=== PATIENT | female | born 1955 | race Caucasian/White ===

== ENCOUNTER → 2016-08-11 | Outpatient (CLI) | payer BC ==
[~2016-08-11] MED LIST: CHOL2000 PO; HYDR-5688 PO; HYDUNK; MULT-506 PO; SULF800T23 PO
--- NOTE | 2016-08-12 08:02 | MAMMOGRAPHY REPORT ---
BILATERAL DIGITAL SCREENING MAMMOGRAM TOMOSYNTHESIS WITH CAD: 08/11/2016 CLINICAL HISTORY: Routine screening. Patient has no complaints. TECHNIQUE: Breast tomosynthesis in addition to standard 2D mammography was performed. Current study was also evaluated with a Computer Aided Detection (CAD) system. COMPARISON: Comparison is made to exams dated: 08/07/2015 mammogram, 08/02/2014 mammogram, 06/22/2013 annette mogram, 06/17/2012 mammogram, 06/17/2011 mammogram, and 02/11/2010 mammogram - [facility]ter. BREAST COMPOSITION: There are scattered areas of fibroglandular density in both breasts. FINDINGS: There is possible architectural distortion in the upper outer middle one third of the righ t breast, for which additional spot compression tomosynthesis views and possibly ultrasound are recom mended. No other suspicious mass, architectural distortion or cluster of microcalcifications is seen bilatera lly. IMPRESSION: ACR BI-RADS CATEGORY 0: INCOMPLETE EVALUATION: NEED ADDITIONAL IMAGING EVALUATION The possible architectural distortion in the upper outer right breast needs additional evaluation. The patient will be called to schedule an appointment. Approximately 10% of breast cancers are not detected with mammography. A negative mammographic report should not delay biopsy if a clinically suggestive mass is present. Siomara Webster M.D. ay/:08/11/2016 17:06:04 Candy Catcher: Odilia ELISE(R)(M), [facility] letter sent: Addl Imaging 0 BI-RADS Code: ACR BI-RADS Category 0: Incomplete Evaluation: Need Additional Imaging Evaluation
== END | disposition home or self-care (01) ==
LOC: C.MAMM 07:17
PROVIDERS: ATTEND Internal Medicine
DX: Z12.31 Encounter for screening mammogram for malignant neoplasm of breast (principal)

== ENCOUNTER → 2016-08-19 | Outpatient (CLI) | payer BC ==
--- NOTE | 2016-08-19 14:14 | MAMMOGRAPHY REPORT ---
UNILATERAL RIGHT DIGITAL DIAGNOSTIC MAMMOGRAM TOMOSYNTHESIS AND TARGETED RIGHT ULTRASOUND: 08/19/2016 CLINICAL HISTORY: 61-year-old woman called back from screening mammography for possible architectural distortion in the upper outer quadrant of the right breast. TECHNIQUE: Spot compression right CC and MLO tomosynthesis images were obtained. Right CC and MLO fu ll field tomosynthesis images were also obtained after placement of skin BB markers. COMPARISON: Comparison is made to exams dated: 08/11/2016 mammogram, 08/07/2015 mammogram, 08/02/2014 annette mogram, 06/22/2013 mammogram, 06/17/2012 mammogram, and 06/17/2011 mammogram - [facility]. BREAST COMPOSITION: The tissue of the right breast is heterogeneously dense, which may obscure small masses. FINDINGS: The additional spot compression views of the right breast demonstrate probable persistent a rchitectural distortion in the lateral middle one third of the breast on the CC view (CC slice 37), t hought to correspond on MLO slice 17. There are 2 other questionable areas of distortion in the late ral right breast seen on CC slice 21 and CC slice 25. A single microcalcification is seen near one a wu of distortion but no suspicious grouping or cluster of calcifications are identified. Further ev aluation with ultrasound was performed. Targeted ultrasound was performed throughout the upper outer quadrant of the right breast. There is a subtle hypoechoic shadowing lesion in the 11:00 right breast, 4 cm from the nipple, with suggested architectural distortion. This measures approximately 6.1 x 10.1 x 5.8 mm. Another subtle hypoechoi c shadowing lesion with possible architectural distortion is seen in the 10:00 right breast, 5 cm fro m the nipple, measuring 7.2 x 10.9 x 10.3 mm. This area of possible distortion is seen adjacent to a superficial oval circumscribed hypoechoic solid-appearing mass measuring 4.1 x 2.6 x 3.3 mm, which i s thought to represent an intramammary lymph node. Skin BBs were placed overlying the hypoechoic shadowing sonographic lesions and repeat full field rig ht CC and MLO tomosynthesis images were obtained. The lesion in the 10:00 axis is thought to correla te with the most definitive area of mammographic distortion and therefore tissue sampling is recommen ded. The second BB marker aligns with a another questionable area of architectural distortion more m edially in the right breast and ultrasound-guided core biopsy is also recommended in the 11:00 axis. IMPRESSION: ACR BI-RADS CATEGORY 4B: INTERMEDIATE SUSPICION FOR MALIGNANCY, TARGETED ULTRASOUND ACR BI-RADS CATEGORY 4B: INTERMEDIATE SUSPICION FOR MALIGNANCY 1. Ultrasound guided core needle biopsy 2 is recommended for subtle hypoechoic shadowing lesions in the 10:00 and 11:00 right breast, thought to correlate with subtle areas of architectural distortion seen mammographically. Correlation with post-procedure tomosynthesis images is recommended. These results and recommendations were discussed with the patient at the time of the exam. She tenta tively scheduled the ultrasound guided core biopsy is prior to leaving our department. A possible th ird area of mammographic distortion is not definitively seen on ultrasound. Further recommendations will be made regarding this lesion, once pathology results are available. Approximately 10% of breast cancers are not detected with mammography. A negative mammographic report should not delay biopsy if a clinically suggestive mass is present. Siomara Webster M.D. ay/:08/19/2016 10:12:56 Client Server Programmer: Odilia ELISE(Anne)(Tom), [facility] letter sent: Abnormal 4/5 BI-RADS Code: ACR BI-RADS Category 4B: Intermediate Suspicion For Malignancy Ultrasound BI-RADS: ACR BI-RADS Category 4B: Intermediate Suspicion For Malignancy
== END | disposition home or self-care (01) ==
LOC: C.MAMM 07:46
PROVIDERS: ATTEND Internal Medicine
DX: N64.9 Disorder of breast, unspecified (principal)

== ENCOUNTER → 2016-09-01 | Outpatient (CLI) | payer BC ==
--- NOTE | 2016-09-01 10:08 | Discharge Instructions ---
Discharge Instructions Procedure Procedure Date: Sep 01, 2016. Reason for visit: Right Masses. Discharge Discharge Date: Sep 01, 2016. Discharge Diagnosis: post right breast ultrasound guided core biopsy x 2 Instructions Activity Recommendations: Additional Limitations (see below) Return to School/Work: no limitations Recommended Home Diet: No Limitations Provider Instructions: ACTIVITY RECOMMENDATIONS: * No lifting, pushing, pulling or exercising the affected side for three days. RETURN TO SCHOOL/WORK: * You may return to work/school after the procedure, but do not perform any strenuous activities for 24 to 48 hours. MEDICATIONS: * Tylenol (two 325 mg) every four to six hours if needed for mild pain (if not allergic to Tylenol). DIET: * Resume previous diet. SPECIAL CARE INSTRUCTIONS: * Keep biopsy site dry for 24 hours. May shower after 24 hours, but do not soak (bathe) incision. * May remove Tegaderm (plastic patch) tomorrow AFTER showering. * Leave the steri-strips on for one week. Allow the steri-strips to fall off by themselves. If not off after one week, you may remove them. You may place a Bandaid crosswise over the strips, if desired. * Apply ice 10 minutes on and 10 minutes off as needed. * Wear a bra at bedtime to sleep more comfortably for 2-3 days. * Your referring physician should have the results after approximately 5 to 7 business days. * Call for unusual bleeding, fever, drainage, etc or if you have any questions call [phone] during normal business hours or after hours call Dr Webster, . FOLLOW UP VISIT: Follow-up with Referring Physician as scheduled. Allergies Coded Allergies: Codeine (Unverified Allergy, Unknown, rash, 11/13/15) Prochlorperazine (Unverified Allergy, Unknown, rash, 11/13/15) Uncoded Allergies: PCN, COMPAZINE CODEIN (Allergy, Intermediate, RASH, 03/02/10) PENICILLIN (Allergy, Unknown, rash, 11/13/15) Debo Schwab Recommendations: Call your doctor if: * Temperature above 101 degrees * Pain not relieved by pain medicine ordered * There is increased drainage or redness from any incision * You have any unanswered questions or concerns. Your Doctors Instructions noted above were prepared by provider Siomara Webster. Patient Signature Section: Patient Instructions Signature Page Jeimy Velasquez Patient (or Guardian) Signature/Date: I have read and understand the instructions given to me by my caregivers. Caregiver/RN/Doctor Signature/Date: The above-named patient and/or guardian has received patient instructions on this date. + Original Patient Signature Page (only) stays with chart. Please make copy for patient.
--- NOTE | 2016-09-01 12:36 | MAMMOGRAPHY REPORT ---
ULTRASOUND GUIDED BIOPSY: 09/01/2016 CLINICAL HISTORY: Status post ultrasound-guided core biopsy of hypoechoic shadowing masses in the 10: 00 and 11:00 axes of the right breast. Please refer to the report from right breast ultrasound guided core biopsy performed at the same time for full detail. IMPRESSION: ULTRASOUND GUIDED BIOPSY Please refer to the report from right breast ultrasound guided core biopsy performed at the same time for full detail. Siomara Webster M.D. ay/:09/01/2016 10:09:32 Attending Technologist: Dr. Siomara Webster, [facility] Cutter Helper: Eh Crandall RT(R)(M), [facility]
--- NOTE | 2016-09-01 12:36 | MAMMOGRAPHY REPORT ---
THIS REPORT HAS BEEN AMENDED. MULTIPLE ULTRASOUND GUIDED BIOPSIES RIGHT BREAST: 09/01/2016 CLINICAL HISTORY: Ill-defined hypoechoic shadowing mass is identified in the 10:00 and 11:00 right br east. These are thought to correlate with possible areas of architectural distortion seen mammograph ically. Patient presents for ultrasound guided core biopsy 2. COMPARISON: Comparison is made to exams dated: 08/19/2016 mammogram, 08/19/2016 ultrasound, 08/11/2016 mammogram, 08/07/2015 mammogram, 08/02/2014 mammogram, and 06/22/2013 mammogram - [facility]ter. PATIENT CONSENT: The procedure, risks and benefits were discussed with the patient and informed writt en consent was obtained. Specific risks to this procedure include: bleeding, infection, puncture of a djacent structure, nontargeted biopsy, sampling error, metal allergy and medication reaction. PROCEDURE DESCRIPTION: A time out was performed and the right breast was agreed as the site of biopsy . The skin was prepped and draped in the usual sterile fashion. First the ill-defined hypoechoic sha dowing mass in the 11:00 right breast was identified and targeted for biopsy. Subcutaneous and intrap arenchymal 1% buffered lidocaine, with and without epinephrine, was administered as local anesthesia. A skin incision was made. Through the incision, 4 samples were taken with a 12 gauge Celero biopsy device. A ribbon shaped metallic marker was placed at the biopsy site. Hemostasis was achieved after manual compression. The patient tolerated the procedure well and there was no immediate complication. Then the ill-defined hypoechoic shadowing mass in the 10:00 right breast was identified and targeted for biopsy. Additional subcutaneous and intraparenchymal 1% buffered lidocaine, with and without epi nephrine, was administered as local anesthesia. A skin incision was made. Through the incision, 6 s amples were obtained with a 14-gauge achieve biopsy device. A wing shaped metallic marker was placed at this biopsy site. Hemostasis was achieved after manual compression. The patient tolerated the p rocedure well and there was no immediate consultation. All of the samples were sent to the pathology department in appropriately labeled containers. Postprocedure right CC and ML 2-D digital and tomosynthesis images were obtained. There are new ribb on-shaped and wing shaped metallic biopsy markers in the upper outer quadrant of the right breast. T he wing shaped metallic biopsy marker correlates well with the more lateral area of architectural dis tortion and a ribbon-shaped marker is thought to correlate with the more medial distortion, although the distortion is not well appreciated on the post procedure images. No significant postbiopsy hemat dara is seen. IMPRESSION: ULTRASOUND GUIDED BIOPSY Status post ultrasound-guided core biopsy of 2 ill-defined hypoechoic shadowing masses in the 10:00 a nd 11:00 axes of the right breast, with biopsy markers placed at each site. The patient will receive notification of the biopsy results from her referring physician. Siomara Webster M.D. ay/:09/01/2016 12:17:23 Attending Technologist: Dr. Siomara Webster, [facility] Terrestrial Ecologist: Eh ELISE(R)(M), [facility] AMENDMENT: 09/04/2016 Siomara Webster M.D. Pathology results from the ultrasound-guided core biopsy of an ill-defined hypoechoic shadowing mass in the 10:00 right breast yielded infiltrating lobular carcinoma. Grade 1/3. ER positive, OR negati ve, HER-2/katie negative. Pathology from the ultrasound-guided core biopsy of an ill-defined hypoechoi c shadowing mass in the 11:00 right breast yielded infiltrating lobular carcinoma. Grade 1/3. ER po sitive, OR positive, HER-2/katie negative. The pathology results are concordant with the imaging appea fernandez. However, given the infiltrative and subtle nature of these masses both mammographically and s onographically, for extensive disease may be underestimated based on mammogram and ultrasound size me asurements. Therefore, recommend bilateral breast MRI to better assess extent of disease, assess the contralateral left breast and for additional information prior to definitive treatment.
--- NOTE | 2016-09-01 12:37 | MAMMOGRAPHY REPORT ---
UNILATERAL RIGHT DIGITAL DIAGNOSTIC MAMMOGRAM TOMOSYNTHESIS: 09/01/2016 CLINICAL HISTORY: Status post ultrasound guided core biopsy 2 in the right breast. Please refer to the report from right breast ultrasound guided core biopsy performed at the same time for full detail. IMPRESSION: POST PROCEDURE IMAGING FOR MARKER PLACEMENT Please refer to the report from right breast ultrasound guided core biopsy performed at the same time for full detail. Approximately 10% of breast cancers are not detected with mammography. A negative mammographic report should not delay biopsy if a clinically suggestive mass is present. Siomara Webster M.D. ay/:09/01/2016 10:10:18 Cryptographic Clerk: Eh ELISE(R)(M), [facility] BI-RADS Code: Post Procedure Imaging For Marker Placement
== END | disposition home or self-care (01) ==
LOC: C.MAMM 08:40
PROVIDERS: ATTEND Internal Medicine
DX: D05.01 Lobular carcinoma in situ of right breast (principal)

== ENCOUNTER → 2016-09-16 | Outpatient (CLI) | payer BC ==
[2016-09-16 12:26] LABS: BASO % 0.8 %; BASO ABS # 0.06 K/uL (0-0.2); COMPLETE YES; EOS % 2.3 %; HEMATOCRIT 44.5 % (37-47); IG% 0.3 %; LYMPH % 37.7 %; LYMPH ABS # 2.76 K/uL (1.2-3.4); MEAN CELL VOLUME 83.3 fL (80-100); MEAN CORPUSCULAR HEMOGLOBIN 28.3 pg (25-34); MEAN CORPUSCULAR HGB CONC 33.9 g/dl (32-36); MEAN PLATELET VOLUME 10.4 fL (7.4-10.4); MONO % 6.8 %; NEUT % 52.1 %; PLATELET COUNT 309 K/uL (130-400); RED BLOOD COUNT 5.34 M/uL (4.2-5.4); WHITE BLOOD COUNT 7.32 K/uL (4.8-10.8)
[2016-09-16 13:00] LABS: URINE APPEARANCE CLEAR (CLEAR); URINE COLOR YELLOW; URINE SPECIFIC GRAVITY 1.016 (1.000-1.030); ZZUR CULT IF INDIC CLEAN CATCH NO
[2016-09-16 13:01] LABS: URINE BILIRUBIN NEG (NEG); URINE NITRITE NEG (NEG); UROBILINOGEN NEG (NEG)
[2016-09-16 13:08] LABS: ALT/SGPT 36 U/L (12-78); BLOOD UREA NITROGEN 13 mg/dl (7-18); BUN/CREATININE RATIO 16.8 (10-20); CARBON DIOXIDE 27 mmol/L (21-32); CHLORIDE 109 mmol/L (98-107); CHOLESTEROL 180 mg/dl (0-200); CREATININE 0.79 mg/dl (0.60-1.20); GLUCOSE 95 mg/dl (70-99); POTASSIUM 4.1 mmol/L (3.5-5.1); SODIUM 141 mmol/L (136-145); TRIGLYCERIDES 115 mg/dl (0-150); VERY LOW DENSITY LIPOPROT CALC 23 mg/dl
[2016-09-16 13:08] LABS: MANUAL MICROSCOPIC REQUIRED? NO; REVIEW REQ? NO
[2016-09-16 13:18] LABS: ALB/GLOB RATIO 1.2 (0.9-2); ALKALINE PHOSPHATASE 110 U/L (45-117); AST/SGOT 23 U/L (15-37); CHOLESTEROL/HDL RATIO 3.5; HDL CHOLESTEROL 52 mg/dl; LDL CHOLESTEROL CALCULATED 105 mg/dl
== END | disposition home or self-care (01) ==
LOC: C.LABBFT 07:40
PROVIDERS: ATTEND Internal Medicine
DX: C50.911 Malignant neoplasm of unspecified site of right female breast (principal); E78.5 Hyperlipidemia, unspecified; E03.9 Hypothyroidism, unspecified; E55.9 Vitamin D deficiency, unspecified

== ENCOUNTER → 2016-09-18 | Outpatient (CLI) | payer BC ==
--- NOTE | 2016-09-19 12:18 | MAMMOGRAPHY REPORT ---
BREAST MRI OF BOTH BREASTS : 09/18/2016 CLINICAL HISTORY: 61-year-old woman with recently diagnosed infiltrating lobular carcinoma in the rig ht breast 10:00 and 11:00 axes. She presents for MRI to assess extent of disease, given the subtle n ature of the masses on mammogram and ultrasound. COMPARISON: Comparison is made to exams dated: 09/01/2016 mammogram, 09/01/2016 ultrasound biopsy, 017 ultrasound biopsy, 08/19/2016 mammogram, 08/19/2016 ultrasound, and 08/11/2016 mammogram - [facility]. TECHNIQUE: Using a 1.5 Anneliese magnet and dedicated breast coil, multisequence axial images were obtain ed through the breasts. After uneventful IV administration of 6.5 mL of Gadavist, dynamic multiphase contrast-enhanced axial images, and sagittal postcontrast were obtained. Temporal subtraction axial images and 3-D MIP images are provided. Everything was then reviewed on a 3-D workstation, [employer]. FINDINGS: Right breast: There is mild background parenchymal enhancement of the right breast. There is subtle focal architectural distortion in the 11:00 to 11:30 middle one third of the right breast, with minim al associated enhancement, and internal biopsy marker. This subtle non-mass enhancement and architec tural distortion measures approximately 9 x 14 x 9 mm (axial page 48/116, sagittal page 29/128). A s econd subtle area of architectural distortion and minimal associated enhancement is identified in the 10:00 middle one third of the right breast measuring approximately 11 x 9 x 12 mm (axial page 54/116 , sagittal page 17/128). There is a third 4 mm focus of enhancement in the 9:00 middle one third of the right breast, approximately 18 mm inferior to the biopsy marker clip in the 10:00 axis. This has associated persistent and plateau kinetics and architectural distortion is best appreciated surround ing this focus on sagittal page 20. This is suspicious for a third malignant lesion in the right upp er outer quadrant. A very subtle and more linear fourth focus of enhancement measuring 4 x 5 mm is s een in the 10:00 posterior right breast, approximately 4 cm posterior to the biopsy proven carcinoma in the 10:00 breast. (This is best seen on axial page 53/116 and sagittal page 22/128). These findi ngs are concerning for multifocal disease within the upper outer quadrant. No other definite enhancing mass, non-mass enhancement, focal area of architectural distortion or kristi picious kinetics are identified in the right breast. There is no focal skin thickening or nipple ret raction. No suspicious right axillary, subpectoral or internal mammary lymphadenopathy. Left breast: There is mild background parenchymal enhancement. There is a benign intramammary lymph node in the upper outer middle one third of the left breast. No suspicious enhancing mass, non-mass enhancement, focal architectural distortion or suspicious kinetics are seen in the left breast. No s uspicious left axillary, subpectoral or intramammary lymphadenopathy. IMPRESSION: ACR BI-RADS CATEGORY 4B: INTERMEDIATE SUSPICION FOR MALIGNANCY 1. Subtle, minimally enhancing areas of architectural distortion in the 10:00 and 11:0011:30 right breast with associated biopsy marker clips, denoting the patient's recent biopsy-proven carcinoma. 2. 2 additional suspicious enhancing foci identified in the right 9:00 middle one third and 10:00 po sterior breast. Overall, the findings are suspicious for multifocal disease, and if breast conservat ion therapy is desired, would recommend second look ultrasound to assess for the additional lesions a nd possible ultrasound-guided core biopsy if either or both are identified (45 minutes). 3. No suspicious axillary, internal mammary or subpectoral lymphadenopathy. 4. No MRI evidence of malignancy in the left breast. The patient will be called to schedule an appointment. Siomara Webster M.D. ay/:09/18/2016 22:07:27 Mid Level Practitioner: endless steamer tender, [facility] letter sent: Abnormal 4/5 BI-RADS Code: ACR BI-RADS Category 4B: Intermediate Suspicion For Malignancy
== END | disposition home or self-care (01) ==
LOC: C.MRI 12:14
PROVIDERS: ATTEND Internal Medicine
DX: C50.911 Malignant neoplasm of unspecified site of right female breast (principal)

== ENCOUNTER → 2016-10-06 | Outpatient (CLI) | payer BC | END | disposition home or self-care (01) | LOC: C.CPL 16:28 | PROVIDERS: ATTEND Surgery | DX: Z01.818 Encounter for other preprocedural examination (principal); C50.911 Malignant neoplasm of unspecified site of right female breast ==

== ENCOUNTER 2016-10-16 07:18 | Day surgery (SDC) | payer BC ==
[2016-10-13 12:04] VITALS: BMI 27.0
[~2016-10-16] VITALS: Ht 167.6 cm; Wt 76.4 kg
[~2016-10-16 07:18] MED LIST changes: +CLINDAMYCIN IV 900 MG in DEXTROSE 5% 100ML 100 ML IV SCH; +FENTANYL CITRATE INJ 50 MCG/1 ML 2 ML VIAL ONE; -HYDR-5688 PO; -HYDUNK; +LACTATED RINGER'S 1000ML 1,000 ML IV SCH; +MIDAZOLAM HCL 1 MG/ML 2ML VIAL ONE; -SULF800T23 PO
[2016-10-16 07:45] VITALS: BP 137/94; PULSE 69; TEMP 37; O2SAT 98; Ht 167.6 cm; Wt 76.4 kg
[2016-10-16] MEDS ORDERED: EpHEDrine SULFATE INJ 50 MG/ML AMP IV PRN (08:15)
[2016-10-16] MEDS ORDERED: ATROPINE SULFATE 0.1 MG/ML 5ML SYR IV PRN (08:15)
[2016-10-16] MEDS ORDERED: ONDANSETRON INJ 2 MG/ML 2 ML VIAL IV PRN ×2 (08:15→11:45)
[2016-10-16] MEDS ORDERED: FENTANYL CITRATE INJ 50 MCG/1 ML 2 ML VIAL IV PRN (08:15)
--- NOTE | 2016-10-16 08:24 | History & Physical Bridge Note ---
H&P Re-Evaluation Bridge Note: I have examined the patient, reviewed the History & Physical and in the interval since the performance of the History & Physical I have noted the following changes of clinical significance: No changes noted
--- NOTE | 2016-10-16 09:16 | DIAGNOSTIC IMAGING REPORT ---
LYMPHOSCINTIGRAPHY CLINICAL HISTORY: Right breast cancer. PROCEDURE: Using standard sterile technique, 4 intradermal and one deep injection of 0.56 mCi of Lymphoseek was placed in the right periareolar breast. The patient tolerated the procedure well. There were no immediate complications. The patient was subsequently transported to the surgical suite. No imaging was obtained at the referring physician's request. IMPRESSION: Injection of 0.56 mCi of Lymphoseek in the right breast. Electronically signed by: Ronald Galeano M.D. 10/16/2016 9:15 AM Dictated Date/Time: 10/16/2016 9:14 AM
[2016-10-16] MEDS ORDERED: BUPIVACAINE/EPINEPHRINE 0.5% MPF 1:200,000 10 ML VIAL ONE (09:22)
[2016-10-16] MEDS ORDERED: FENTANYL CITRATE INJ 50 MCG/1 ML 2 ML VIAL ONE ×2 (09:48→10:04)
[2016-10-16] MEDS ORDERED: ONDANSETRON INJ 2 MG/ML 2 ML VIAL ONE (09:58)
[2016-10-16] MEDS ORDERED: DEXAMETHASONE SOD INJ 4 MG/ML VIAL ONE (09:58)
[2016-10-16] MEDS ORDERED: PROPOFOL IV EMULSION 10 MG/ML 20 ML VIAL IV ONE (09:58)
[2016-10-16] MEDS ORDERED: LIDOCAINE HCL 2% 2 ML VIAL (20MG/ML) ONE (09:58)
[2016-10-16] MEDS ORDERED: EpHEDrine SULFATE INJ 50 MG/ML AMP ONE (10:06)
[2016-10-16] MEDS ORDERED: ARISTA ABSORBABLE HEMOSTAT 3GM TOP ONE (10:59)
[2016-10-16] MEDS ORDERED: TISSEEL FIBRIN SEALANT 4ML TOP ONE (11:00)
[2016-10-16] MEDS ORDERED: SULF800T23 PO (11:36)
[2016-10-16] MEDS ORDERED: SODIUM CHLORIDE 0.9% 1000ML 1,000 ML IV SCH (11:39)
--- NOTE | 2016-10-16 11:39 | Discharge Instructions ---
Discharge Instructions Date of Service Oct 16, 2016. Admission Reason for Admission: Right Breast Cancer Discharge Discharge Diagnosis / Problem: Right Breast Cancer Discharge Goals Goal(s): Learn about illness Activity Recommendations Activity Limitations: as noted below Lifting Limitations: no more than 10 pounds Exercise/Sports Limitations: until after follow-up appointment May Resume Sexual Activity: after follow-up appointment Shower/Bathe: tomorrow . Instructions / Follow-Up Instructions / Follow-Up You may shower tomorrow. You have steri-strips on your incision. They will usually stay on the skin for 5-7 days. Please leave them on until they fall off. You may keep a gauze dressing overtop the steri-strips if you prefer. Please follow-up with Dr. Ferrera in the office in 1-2 weeks. Please call the office at [phone] to make an appointment if you do not have one already. Please call the office at [phone] with any questions or concerns. Current Hospital Diet Patient's current hospital diet: Discharge Diet Recommended Diet: Regular Diet Procedures Procedures Performed: Right Breast Mastectomy with Right [place] Lymph Node Biopsy Pending Studies Studies pending at discharge: yes List of pending studies: Pathology report. Laboratory Results Lipid Panel Test 09/16/16 07:49 Range/Units Triglycerides Level 115 0-150 mg/dl Cholesterol Level 180 0-200 mg/dl HDL Cholesterol 52 mg/dl Cholesterol/HDL Ratio 3.5 LDL Cholesterol, Calculated 105 mg/dl Medical Emergencies . Who to Call and When: Medical Emergencies: If at any time you feel your situation is an emergency, please call 911 immediately. . Non-Emergent Contact Non-Emergency issues call your: Primary Care Provider, Surgeon Call Non-Emergent contact if: temperature is above 101.5, your pain is not controlled, wound has increased drainage, wound has increased redness . "Provider Documentation" section prepared by Shannon Santizo. . VTE Core Measure Inpt VTE Proph given/why not?: SCD's [place] Drug Monitoring Program Search Results: patient reviewed within database, no issues identified
--- NOTE | 2016-10-16 11:56 | [facility] Operative Report ---
Operative Report Operative Date Oct 16, 2016. Pre-Operative Diagnosis Right Breast Cancer Post-Operative Diagnosis Same as preoperative; negative sentinel lymph nodes times 3 Procedure(s) Performed Right Breast Mastectomy with Right Purd[place] Lymph Node Biopsy Surgeon Dr. Denis Ferrera Turkish Line Attendant Surgeon(s) Shannon Santizo PA-C Estimated Blood Loss 20mL Findings normal appearing anatomy; 3 negative sentinel lymph nodes Specimens Frozen Specimens: 1) [place] Lymph Node #1, left OR6 @ 1022 2) [place] Lymph Node #2, left OR6 @ 1030 3) [place] Lymph Node #2, left OR6 @ 1030 Fresh Specimens: A.) Right Breast, 1 Long Lateral; 2 Short Superior, left OR6 @ 1022 Anesthesia general LMA Complication(s) None Disposition Recovery Room / PACU Description of Procedure Prior to coming to the operating suite the patient has been taken to radiology and injected with technetium. After that she was brought to the operating room placed in supine position. The right arm was extended and the upper chest wall breast and entire axilla was sterilely prepped and draped in usual fashion. We did use the neoprobe to ensure there was adequate injection at the periareolar sites. We also did find several areas of activity in the right axilla. Because we are doing a total mastectomy with began by performing the mastectomy and then would remove the lymph nodes through the same incision. I made a wide elliptical incision with a 15 blade scalpel. We used electrocautery make skin flaps we carried this incision the whole way down to the fascia of the pectoralis muscle. Using traction /countertraction and electrocautery we removed the entire right breast creating superior and inferior skin flaps while doing so. We controlled any bleeding points using primarily electrocautery. Once we had the entire breast removed we did ivanna it such that one long stitch marked lateral side and 2 short stitches marked the superior side and of course the skin and nipple marking the anterior portion. After we had the breast removed we used the neoprobe. We were able to identify 3 "hot" lymph nodes. After removing them all of the background neoprobe activity was gone. We used traction countertraction electrocautery to simply remove them each individually and send them for frozen section. The pathologist would call back into the room indicating that all 3 sentinel lymph nodes were negative. At this point we thoroughly irrigated all the raw surfaces. There was adequate hemostasis at the end of the procedure. I used tisseal sealant over all the raw surfaces as well as Yisel powder. I placed a 10 flat Juan-Guzman drain and brought through a separate stab incision. We then closed large defect in multiple layers using 0 Vicryl for the deeper layers 2-0 Vicryl for the middle layers and 3-0 Monocryl in running fashion for the skin. Benzoin Steri-Strips gauze and a Surgi-Bra were used for dressing. Patient was awakened extubated and transferred recovery in stable condition I attest to the content of the Intraoperative Record and any orders documented therein. Any exceptions are noted below.
[2016-10-16] MEDS ORDERED: HYDR-5688 PO (12:00)
[2016-10-16 12:30] VITALS: BP 158/77; PULSE 92; TEMP 36.5; O2SAT 92
--- NOTE | 2016-10-16 12:40 | Anesthesiology Progress Note ---
Anesthesia Post Op Note Date & Time Oct 16, 2016 at 12:40 Vital Signs Pain Intensity: 1 Vital Signs Past 12 Hours Date Time Temp Pulse Resp B/P (MAP) Pulse Ox O2 Delivery O2 Flow Rate FiO2 10/16/16 12:10 36.4 14 159/80 92 Room Air 10/16/16 11:32 36.4 94 14 158/79 95 Mask 10 10/16/16 07:45 37.0 69 16 137/94 (108) 98 Room Air Notes Mental Status: alert / awake / arousable, participated in evaluation Pt Amnestic to Procedure: Yes Nausea / Vomiting: adequately controlled Pain: adequately controlled Airway Patency, RR, SpO2: stable & adequate BP & HR: stable & adequate Hydration State: stable & adequate Anesthetic Complications: no major complications apparent
[2016-10-16 13:00] VITALS: BP 154/88; PULSE 76; O2SAT 99
[2016-10-16 13:11] VITALS: BP 167/78; PULSE 80; O2SAT 99
[2016-10-16 13:45] VITALS: BP 160/70; PULSE 84; TEMP 36.5; O2SAT 99
--- NOTE | 2016-10-16 14:27 | Anesthesiology Progress Note ---
Anesthesia Post Op Note Date & Time Oct 16, 2016 at 14:26 Vital Signs Pain Intensity: 0 Vital Signs Past 12 Hours Date Time Temp Pulse Resp B/P (MAP) Pulse Ox O2 Delivery O2 Flow Rate FiO2 10/16/16 13:11 80 16 167/78 99 Nasal Cannula 2 10/16/16 13:00 76 18 154/88 99 Nasal Cannula 4 10/16/16 12:30 36.5 92 14 158/77 92 Room Air 0 10/16/16 12:10 36.4 14 159/80 92 Room Air 10/16/16 11:32 36.4 94 14 158/79 95 Mask 10 10/16/16 07:45 37.0 69 16 137/94 (108) 98 Room Air Notes Mental Status: alert / awake / arousable, participated in evaluation Pt Amnestic to Procedure: Yes Nausea / Vomiting: adequately controlled Pain: adequately controlled Airway Patency, RR, SpO2: stable & adequate BP & HR: stable & adequate Hydration State: stable & adequate Anesthetic Complications: no major complications apparent
[2016-10-16 14:30] VITALS: BP 154/80; PULSE 81; TEMP 36.4; O2SAT 99
== END 2016-10-16 15:25 | disposition home or self-care (01) ==
LOC: C.ACU 07:18
PROVIDERS: ATTEND Surgery
DX: C50.911 Malignant neoplasm of unspecified site of right female breast (principal); N81.11 Cystocele, midline; E78.5 Hyperlipidemia, unspecified; I10 Essential (primary) hypertension; E03.9 Hypothyroidism, unspecified; Z80.3 Family history of malignant neoplasm of breast; Z80.49 Family history of malignant neoplasm of other genital organs

== ENCOUNTER → 2017-02-26 | Outpatient (CLI) | payer BC ==
[~2017-02-26] MED LIST changes: -CLINDAMYCIN IV 900 MG in DEXTROSE 5% 100ML 100 ML IV SCH; -FENTANYL CITRATE INJ 50 MCG/1 ML 2 ML VIAL ONE; -LACTATED RINGER'S 1000ML 1,000 ML IV SCH; -MIDAZOLAM HCL 1 MG/ML 2ML VIAL ONE
[2017-02-26 12:17] LABS: BASO % 0.4 %; BASO ABS # 0.05 K/uL (0-0.2); COMPLETE YES; EOS % 1.9 %; HEMATOCRIT 43.1 % (37-47); IG% 0.3 %; LYMPH % 19.1 %; LYMPH ABS # 2.46 K/uL (1.2-3.4); MEAN CELL VOLUME 83.9 fL (80-100); MEAN CORPUSCULAR HEMOGLOBIN 28.2 pg (25-34); MEAN CORPUSCULAR HGB CONC 33.6 g/dl (32-36); MEAN PLATELET VOLUME 10.2 fL (7.4-10.4); MONO % 8.4 %; NEUT % 69.9 %; PLATELET COUNT 333 K/uL (130-400); RED BLOOD COUNT 5.14 M/uL (4.2-5.4); WHITE BLOOD COUNT 12.91 K/uL (4.8-10.8)
[2017-02-26 12:24] LABS: AST/SGOT 30 U/L (15-37); BLOOD UREA NITROGEN 13 mg/dl (7-18); BUN/CREATININE RATIO 17.6 (10-20); CALCIUM 8.9 mg/dl (8.5-10.1); CARBON DIOXIDE 24 mmol/L (21-32); CHLORIDE 108 mmol/L (98-107); CREATININE 0.76 mg/dl (0.60-1.20); GLUCOSE 93 mg/dl (70-99); POTASSIUM 3.9 mmol/L (3.5-5.1); SODIUM 139 mmol/L (136-145)
[2017-02-26 12:27] LABS: ALB/GLOB RATIO 1.2 (0.9-2); ALKALINE PHOSPHATASE 124 U/L (45-117); ALT/SGPT 51 U/L (12-78)
== END | disposition home or self-care (01) ==
LOC: C.LABBFT 07:12
PROVIDERS: ATTEND Internal Medicine Hematology & Oncology
DX: C50.811 Malignant neoplasm of overlapping sites of right female breast (principal)

== ENCOUNTER → 2017-03-16 | Outpatient (CLI) | payer BC | END | disposition home or self-care (01) | LOC: C.MAMM 07:48 | PROVIDERS: ATTEND Internal Medicine Hematology & Oncology | DX: M85.88 Other specified disorders of bone density and structure, other site (principal); M81.0 Age-related osteoporosis without current pathological fracture; C50.919 Malignant neoplasm of unspecified site of unspecified female breast ==

== ENCOUNTER → 2017-05-27 | Outpatient (CLI) | payer BC ==
[2017-05-27 12:33] LABS: BASO % 0.8 %; BASO ABS # 0.07 K/uL (0-0.2); EOS % 2.1 %; EOS ABS # 0.19 K/uL (0-0.5); HEMATOCRIT 41.8 % (37-47); HEMOGLOBIN 14.1 g/dL (12.0-16.0); IG# 0.05 K/uL (0.00-0.02); LYMPH % 34.9 %; MEAN CELL VOLUME 83.3 fL (80-100); MEAN CORPUSCULAR HEMOGLOBIN 28.1 pg (25-34); MEAN CORPUSCULAR HGB CONC 33.7 g/dl (32-36); MEAN PLATELET VOLUME 10.1 fL (7.4-10.4); MONO % 8.7 %; NEUT ABS # 4.87 K/uL (1.4-6.5); PLATELET COUNT 349 K/uL (130-400); RED CELL DISTRIBUTION WIDTH CV 12.3 % (11.5-14.5); RED CELL DISTRIBUTION WIDTH SD 37.2 fL (36.4-46.3); WHITE BLOOD COUNT 9.18 K/uL (4.8-10.8)
[2017-05-27 13:16] LABS: ALBUMIN 3.8 gm/dl (3.4-5.0); ALT/SGPT 36 U/L (12-78); BLOOD UREA NITROGEN 16 mg/dl (7-18); CALCIUM 8.9 mg/dl (8.5-10.1); CARBON DIOXIDE 25 mmol/L (21-32); CREATININE 0.86 mg/dl (0.60-1.20); GLUCOSE 94 mg/dl (70-99); POTASSIUM 3.7 mmol/L (3.5-5.1); SODIUM 140 mmol/L (136-145)
[2017-05-27 13:19] LABS: ALKALINE PHOSPHATASE 121 U/L (45-117); AST/SGOT 21 U/L (15-37); TOTAL PROTEIN 7.1 gm/dl (6.4-8.2)
== END | disposition home or self-care (01) ==
LOC: C.LABBFT 07:29
PROVIDERS: ATTEND Internal Medicine Hematology & Oncology
DX: C50.811 Malignant neoplasm of overlapping sites of right female breast (principal)